=== PATIENT | male | born 1980 | race Caucasian/White ===

== ENCOUNTER 2023-03-24 21:09 | Emergency (ER) | payer OTHER, SELFPAY ==
[2023-03-24] VITALS (13 sets, daily range): BP systolic 137–159; BP diastolic 88–93; PULSE 93–107; RESP 20–25; TEMP 36.2; O2SAT 98–100
--- NOTE | ~2023-03-24 | XR_ITS ---
EXAMINATION: XR chest 2V Exam Date/Time: 03/24/2023 21:40 CDT HISTORY: SOB, RIGHT SIDE RADIATING TO MID CHEST PAIN Comparison: None. RESULT: Lines, tubes, and devices: None. Lungs and pleura: Diffuse reticular and reticulonodular opacities. Mild cuffing. Trace posterior cos tophrenic angle blunting. Cardiomediastinal silhouette: Stable. Other: No acute osseous or upper abdominal finding. IMPRESSION: Pulmonary opacities may represent respiratory bronchiolitis or mild interstitial edema. Possible trac e bilateral effusions. Reviewed, dictated and finalized at location K. IMPRESSION: Pulmonary opacities may represent respiratory bronchiolitis or mild interstitia l edema. Possible trace bilateral effusions.
--- NOTE | 2023-03-24 21:10 | ECG_ITS ---
Measurements Intervals [place] Rate: 108 P: 60 MT: 151 QRS: 47 QRSD: 85 T: 48 QT: 299 QTc: 401 Interpretive Statements SINUS TACHYCARDIA EARLY R-WAVE TRANSITION NONSPECIFIC ST AND T-WAVE ABNORMALITY ABNORMAL ECG NO PREVIOUS ECG AVAILABLE FOR COMPARISON Electronically Signed On 03-25-2023 8:25:41 CDT by Royal Sibley M.D.
[2023-03-24 21:33] LABS: Basophils Percent Auto 0.5 % (0.2-1.2); Eosinophils Absolute Auto 0.2 K/mm3 (0-0.3); Eosinophils Percent Auto 3.2 % (0-4.4); Hematocrit 40.6 % (42.0-52.0); Hemoglobin 14.1 g/dL (14.0-18.0); Immature Granulocyte Absolute 0.01 K/mm3 (0.00-0.031); Immature Granulocyte Percent A 0.2 % (0-0.5); Lymphocytes Absolute Auto 0.52 K/mm3 (0.9-3.2); Mean Corpuscular HGB Conc 34.7 g/dl (32-36); Mean Corpuscular Hemoglobin 31.4 pg (26-34); Mean Corpuscular Volume 90.4 fl (80-100); Mean Platelet Volume 9.9 fl (7.4-10.4); Monocytes Absolute Auto 0.7 K/mm3 (0.1-0.6); Monocytes Percent Auto 10.6 % (2.6-8.5); Neutrophils Percent Auto 77.5 % (45.5-73.1); Platelet Count Result 236 k/mm3 (150-375); Red Blood Count 4.49 M/mm3 (4.6-6.20); Red Cell Distribution Width 13.1 % (11.5-14.5); White Blood Count 6.5 K/mm3 (4.5-10.0)
[2023-03-24] MEDS: ASPIRIN 81 MG CHEWABLE TABLET 324 MG PO (21:37)
[2023-03-24 21:45] LABS: Alanine Aminotransferase 26 U/L (6-50); Albumin Level 4.8 g/dL (3.5-5.1); Alkaline Phosphatase 67 U/L (38-126); Anion Gap 11 mmol/L (8-16); Aspartate Amino Transferase 27 U/L (17-59); Bilirubin,Total 0.6 mg/dL (0.2-1.3); Blood Urea Nitrogen 16 mg/dL (9-20); Calcium 9.3 mg/dL (8.4-10.2); Carbon Dioxide 23 mmol/L (22-30); Chloride 103 mmol/L (98-107); Estimated CRCL calculation 91 ml/min; Estimated Glomerular Filt Rate > 60; Glucose 93 mg/dL (65-110); Lipase 47 U/L (23-300); Potassium 3.6 mmol/L (3.4-5.0); Sodium 137 mmol/L (137-145)
[2023-03-24 21:45] LABS: INR 0.9; Prothrombin Time 12.2 Seconds (11.1-14.7)
[2023-03-24 21:46] LABS: Partial Thromboplastin Time 26.1 SECONDS (22.3-36.8)
--- NOTE | 2023-03-24 21:51 | ED.GENADULT ---
HPI - General Adult General Chief complaint: Chest Pain Stated complaint: chest/shoulder pain Time Seen by Provider: 03/24/23 21:28 History of Present Illness HPI narrative: Patient 42-year-old gentleman who presents the emergency department with chief complaint of right-sided chest pain. Patient reports that he started having pain in the right side of his chest several days ago reports its more in the anterior chest wall and in the clavicle area the patient states that he has been coughing as well and has had a low-grade fever. 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 Nursing and ancillary documentation was reviewed. Exam Narrative: GENERAL: Well-appearing, well-nourished, and in no acute distress. HEAD: Normocephalic, atraumatic. EYES: PERRLA and EOMI. ENT: Nares clear, no rhinorrhea or epistaxis. Mucous membranes moist. NECK: Supple. CHEST: Clear to auscultation. No respiratory distress. Chest wall is tender to palpation of the right anterior chest wall no crepitance or subcu emphysema HEART: Regular rate and rhythm. No murmur heard. Normal peripheral pulses. ABDOMEN: Soft, nontender, nondistended, normal active bowel sounds. EXTREMITIES: Normal range of motion. No edema. SKIN: Warm, dry, no rash. NEURO: No focal deficits. Alert and oriented x3. PSYCH: Normal mood and affect. Course Vital Signs Vital signs: Vital Signs Temperature 36.2 C L 03/24/23 21:13 Pulse Rate 106 H 03/24/23 21:13 Respiratory Rate 20 03/24/23 21:13 Blood Pressure 159/93 H 03/24/23 21:13 Pulse Oximetry 99 03/24/23 21:13 Oxygen Delivery Room Air 03/24/23 21:13 Temperature 36.2 C L 03/24/23 21:13 Pulse Rate 104 H 03/24/23 22:34 Respiratory Rate 20 03/24/23 22:34 Blood Pressure 139/91 H 03/24/23 22:34 Pulse Oximetry 100 03/24/23 22:34 Oxygen Delivery Room Air 03/24/23 21:13 Medical Decision Making MDM Narrative Medical decision making narrative: Differential diagnosis includes pneumothorax, rib fracture, ACS, COVID-19, pneumonia Chest x-ray showed evidence of bronchitis/bronchiolitis with pulmonary opacities. Laboratory studies were obtained showed normal white blood cell count electrolytes are within normal limits troponin was negative D-dimer was negative COVID and flu were negative. The patient has had persistent cough and the patient will be treated clinically with a pneumonia given x-ray findings present on chest x-ray. Vital Signs Vital Signs: Vital Signs Temperature 36.2 C L 03/24/23 21:13 Pulse Rate 106 H 03/24/23 21:13 Respiratory Rate 20 03/24/23 21:13 Blood Pressure 159/93 H 03/24/23 21:13 Pulse Oximetry 99 03/24/23 21:13 Oxygen Delivery Room Air 03/24/23 21:13 Temperature 36.2 C L 03/24/23 21:13 Pulse Rate 104 H 03/24/23 22:34 Respiratory Rate 20 03/24/23 22:34 Blood Pressure 139/91 H 03/24/23 22:34 Pulse Oximetry 100 03/24/23 22:34 Oxygen Delivery Room Air 03/24/23 21:13 Lab Data 03/24/23 21:27 03/24/23 21:27 Labs: Lab Results 03/24/23 03/24/23 03/24/23 Range/Units 21:27 21:28 21:50 WBC 6.5 (4.5-10.0) K/mm3 RBC 4.49 L (4.6-6.20) M/mm3 Hgb 14.1 (14.0-18.0) g/dL Hct 40.6 L (42.0-52.0) % MCV 90.4 (80-100) fl MCH 31.4 (26-34) pg MCHC 34.7 (32-36) g/dl RDW 13.1 (11.5-14.5) % Plt Count 236 (150-375) k/mm3 MPV 9.9 (7.4-10.4) fl Immature Gran % (Auto) 0.
[2023-03-24 21:57] LABS: Troponin I < 0.012 ng/mL (0.000-0.034)
[2023-03-24] MEDS: IPRATROPIUM BR 0.02% INH SOLN 0.5 MG/2.5 ML VIAL INHALATION (22:00)
[2023-03-24] MEDS: ALBUTEROL SULFATE NEB 2.5 MG/3 ML INH INHALATION (22:00)
[2023-03-24 22:15] LABS: D Dimer 0.46 ug/mL (<0.48)
[2023-03-24] MEDS: KETOROLAC 15 MG/ML VIAL (*BKC) IV PUSH (22:30)
[2023-03-24 22:33] LABS: Influenza A QL RT-PCR Negative (Negative); Influenza B QL RT-PCR Negative (Negative); SARS-CoV-2 RNA PCR Negative (Negative)
[2023-03-24] MEDS: ACETAMINOPHEN 500 MG TABLET 1000 MG PO (23:38)
[2023-03-24] MEDS: DOXYCYCLINE HYCLATE 100 MG TABLET PO (23:39)
[2023-03-25] VITALS: PULSE 89; RESP 21; O2SAT 98
[2023-03-25 00:01] VITALS: BP 125/84; PULSE 93; RESP 20; O2SAT 99
[2023-03-25 00:15] VITALS: PULSE 87; RESP 21; O2SAT 98
[2023-03-25 00:16] VITALS: BP 128/86; PULSE 88; RESP 22; O2SAT 99
== END 2023-03-25 00:27 | disposition home or self-care (01) ==
PROVIDERS: Emergency Provider Emergency Medicine
DX: J18.9 Pneumonia, unspecified organism (principal); R07.89 Other chest pain; Z20.822 Contact with and (suspected) exposure to COVID-19
CPT/HCPCS: 36415; 71046; 80053; 83690; 84484; 85025; 85380; 85610; 85730; 87636; 93005; 94640; 96374; 99284; A9270; J1885